=== PATIENT | female | born 1970 ===

== ENCOUNTER 2019-01-29 06:20 | Day surgery (SDC) | payer OTHER ==
[~2019-01-29 06:20] MED LIST: SYNTHROID100 MCG PO
[2019-01-29] MEDS ORDERED: PERCOCET 5-3251 EACH PO (10:11)
== END 2019-01-29 14:20 | disposition home or self-care (01) ==
LOC: CIR.AMB 06:20
DX: N80.2 Endometriosis of fallopian tube (principal); N80.1 Endometriosis of ovary; N73.6 Female pelvic peritoneal adhesions (postinfective)